=== PATIENT | male | born 1995 | race Two or more races ===

== ENCOUNTER → 2022-02-12 | Outpatient (REF) | payer BC ==
[2022-02-12 19:24] LABS: CHLORIDE LEVEL 104 MMOL/L (98-107); SODIUM LEVEL 142 MMOL/L (136-145)
[2022-02-12 19:26] LABS: ALBUMIN 4.3 G/DL (3.2-5.2); CARBON DIOXIDE LEVEL 27 MMOL/L (20-31)
[2022-02-12 19:30] LABS: BLOOD UREA NITROGEN 15 MG/DL (9-23)
[2022-02-12 19:31] LABS: ALKALINE PHOSPHATASE 64 U/L (46-116); CALCIUM LEVEL 9.6 MG/DL (8.5-10.1); GLUCOSE, FASTING 95 MG/DL (60-100)
[2022-02-12 19:32] LABS: ALT/SGPT 16 U/L (7.0-40); BILIRUBIN,TOTAL 0.8 MG/DL (0.3-1.2); TOTAL PROTEIN 7.3 G/DL (5.7-8.2)
[2022-02-12 19:33] LABS: AST/SGOT 19 U/L (<34); CREATININE FOR GFR 0.87 MG/DL (0.70-1.30); GLOMERULAR FILTRATION RATE > 60.0 (>60)
[2022-02-12 20:02] LABS: HIV 1&2 SCREEN CENTAUR NEGATIVE (NEGATIVE)
[2022-02-12 20:09] LABS: POTASSIUM SERUM 4.4 MMOL/L (3.5-5.1)
== END ==
LOC: M LAB REF 17:13
PROVIDERS: ATTEND Physician Assistant
DX: E80.6 Other disorders of bilirubin metabolism (principal); Z11.59 Encounter for screening for other viral diseases; Z11.4 Encounter for screening for human immunodeficiency virus [HIV]

== ENCOUNTER → 2022-06-26 | Outpatient (CLI) | payer OTHER | LOC: M RAD 12:57 | PROVIDERS: ATTEND Physician Assistant | DX: M25.562 Pain in left knee (principal) ==

== ENCOUNTER 2022-08-11 00:47 | Emergency (ER) | payer OTHER ==
[~2022-08-11] VITALS: Ht 172.7 cm; Wt 65.8 kg
[2022-08-11 00:48] VITALS: BP 135/88
[2022-08-11] MEDS ORDERED: ADDE10TA PO (00:53)
[2022-08-11] MEDS ORDERED: AUGMENTIN 875 MG TAB PO ONE (01:30)
[2022-08-11] MEDS ORDERED: AMOX875T2 PO (01:48)
[2022-08-11] MEDS ORDERED: FLON1SPR NARES (01:48)
== END 2022-08-11 01:51 | disposition home or self-care (01) ==
LOC: M ED 00:47
DX: J01.90 Acute sinusitis, unspecified (principal)

== ENCOUNTER 2022-11-27 23:08 | Emergency (ER) | payer MEDICAID, OTHER ==
[~2022-11-27] VITALS: Ht 172.7 cm; Wt 64.5 kg
[~2022-11-27 23:08] MED LIST: ADDE10TA PO; AMOX875T2 PO; FLON1SPR NARES
[2022-11-28] MEDS ORDERED: IBUPROFEN 600MG TAB PO ONE (01:50)
[2022-11-28] MEDS ORDERED: NEOSPORIN OINT 0.9 GM PKT TOP ONE (01:50)
[2022-11-28 02:20] VITALS: BP 130/80; TEMP 97.9; O2SAT 99
== END 2022-11-28 02:22 | disposition home or self-care (01) ==
LOC: M ED 23:08
DX: S60.511A Abrasion of right hand, initial encounter (principal); S63.501A Unspecified sprain of right wrist, initial encounter; Z79.2 Long term (current) use of antibiotics; Z79.899 Other long term (current) drug therapy

== ENCOUNTER 2023-10-16 06:30 | Emergency (ER) | payer OTHER ==
[~2023-10-16] VITALS: Ht 172.7 cm; Wt 63.6 kg
[2023-10-16] MEDS: NS 1,000 ML IV ONE ×2 (06:55→07:54)
[2023-10-16 07:19] LABS: BASO % 0.3 % (0.0-1.0); EOS # 0.1 10^3/uL (0.0-0.5); EOS % 1.3 % (0.0-3.0); HEMATOCRIT 40.9 % (42.0-52.0); HEMOGLOBIN 13.9 g/dl (13.5-17.5); LYMPH # 1.7 10^3/uL (1.5-5.0); MEAN CORPUSCULAR HEMOGLOBIN 27.5 pg (27.0-33.0); MONO # 0.4 10^3/uL (0.0-0.8); MONO % 6.3 % (2.0-8.0); NEUTROPHILS # 4.5 10^3/uL (1.5-8.5); PLATELET COUNT, AUTOMATED 201 10^3/uL (150-450); RED BLOOD COUNT 5.05 10^6/uL (4.30-6.10); WHITE BLOOD COUNT 6.8 10^3/uL (4.0-10.0)
[2023-10-16 07:27] LABS: LIPASE 28 U/L (12-53)
[2023-10-16 07:29] LABS: ALBUMIN 4.2 G/DL (3.2-5.2); ALKALINE PHOSPHATASE 68 U/L (46-116); ALT/SGPT 24 U/L (7.0-40); AST/SGOT 53 U/L (<34); BILIRUBIN,DIRECT 0.4 MG/DL (<0.4); BILIRUBIN,TOTAL 1.2 MG/DL (0.3-1.2); BLOOD UREA NITROGEN 18 MG/DL (9-23); CALCIUM LEVEL 8.4 MG/DL (8.5-10.1); CARBON DIOXIDE LEVEL 24 MMOL/L (20-31); CHLORIDE LEVEL 104 MMOL/L (98-107); CK-MB VALUE MASS 11.7 NG/ML (<3.6); CREATININE FOR GFR 0.99 MG/DL (0.70-1.30); GLOMERULAR FILTRATION RATE > 60.0 (>60); GLUCOSE, FASTING 107 MG/DL (60-100); POTASSIUM SERUM 3.2 MMOL/L (3.5-5.1); SODIUM LEVEL 137 MMOL/L (136-145); TOTAL PROTEIN 6.7 G/DL (5.7-8.2)
[2023-10-16 07:30] LABS: SALICYLATE LEVEL < 3.0 MG/DL (<30)
[2023-10-16 07:31] LABS: ETHYL ALCOHOL (ETHANOL) < 0.003 % (0.000-0.010); THYROID STIMULATING HORMONE 0.729 uIU/ML (0.55-4.78)
[2023-10-16 07:32] LABS: FREE T4 1.45 NG/DL (0.89-1.76)
[2023-10-16 07:34] LABS: CPK CREATINE PHOSPHOKINASE 1081 U/L (46-171); MB/CK RELATIVE INDEX 1.08 (< OR =4)
[2023-10-16] MEDS ORDERED: ISOVUE-370 76% 100ML VIAL As Ordered ONE (08:02)
[2023-10-16 08:22] LABS: CPK CREATINE PHOSPHOKINASE 961 U/L (46-171); MB/CK RELATIVE INDEX 1.14 (< OR =4)
[2023-10-16 10:00] VITALS: BP 109/62; TEMP 97.2; O2SAT 98
[2023-10-16 10:00] LABS: AMPHETAMINES LEVEL URINE NEGATIVE (NEGATIVE); BARBITURATES URINE NEGATIVE (NEGATIVE); BENZODIAZEPINES URINE NEGATIVE (NEGATIVE); CANNABINOIDS URINE POSITIVE (NEGATIVE); COCAINE METABOLITE URINE POSITIVE (NEGATIVE); METHADONE URINE NEGATIVE (NEGATIVE); OPIATES URINE NEGATIVE (NEGATIVE); PHENCYCLIDINE URINE NEGATIVE (NEGATIVE)
== END 2023-10-16 10:38 | disposition home or self-care (01) ==
LOC: M ED 06:30 → EDBD 06:30 → M ED 10:38
DX: F19.10 Other psychoactive substance abuse, uncomplicated (principal); R07.9 Chest pain, unspecified; F90.9 Attention-deficit hyperactivity disorder, unspecified type; F17.290 Nicotine dependence, other tobacco product, uncomplicated; Z79.899 Other long term (current) drug therapy
CPT/HCPCS: 71045; 71275; 80047; 80048; 80076; 80143; 80307; 82077; 82550; 82553; 83690; 84439; 84443; 84484; 85025; 93005; 93041; 94760; 96360; 96361; 99285; Q9967

== ENCOUNTER → 2024-02-09 | Outpatient (REF) | payer OTHER ==
[2024-02-09 19:12] LABS: Trichomonas vaginalis (AMP) NOT DETECTED (NEGATIVE)
[2024-02-09 19:36] LABS: GC DNA AMPLIFICATION NEGATIVE (NEGATIVE)
[2024-02-09 19:59] LABS: HEPATITIS C VIRUS ABY INDEX 0.19 INDEX (<0.8)
== END ==
LOC: M LAB REF 16:17
PROVIDERS: ATTEND Physician Assistant
DX: Z11.3 Encounter for screening for infections with a predominantly sexual mode of transmission (principal); Z79.899 Other long term (current) drug therapy; Z11.59 Encounter for screening for other viral diseases

== ENCOUNTER 2024-04-07 20:36 | Emergency (ER) | payer OTHER ==
[~2024-04-07] VITALS: Ht 172.7 cm; Wt 72.7 kg
[2024-04-07] MEDS ORDERED: AMPH1CAP14 PO (21:01)
[2024-04-07] MEDS: OLANZapine INTRAMUSCULAR 10MG VIAL IM ONE (21:24)
[2024-04-07] MEDS: LORazepam 2 MG/ML 1ML VIAL IM ONE (21:24)
[2024-04-07] MEDS ORDERED: MED REC CURRENTLY UNOBTAINABLE XX SCH (21:45)
[2024-04-07 22:28] LABS: HEMATOCRIT 41.9 % (42.0-52.0); HEMOGLOBIN 14.1 g/dl (13.5-17.5); MEAN CORPUSCULAR HEMOGLOBIN 27.9 pg (27.0-33.0); MEAN CORPUSCULAR HGB CONC 33.7 g/dl (32.0-36.5); MEAN CORPUSCULAR VOLUME 82.8 fl (80.0-96.0); PLATELET COUNT, AUTOMATED 221 10^3/uL (150-450); RED BLOOD COUNT 5.06 10^6/uL (4.30-6.10); WHITE BLOOD COUNT 9.5 10^3/uL (4.0-10.0)
[2024-04-07 22:44] LABS: ETHYL ALCOHOL (ETHANOL) < 0.003 % (0.000-0.010)
[2024-04-07 22:46] LABS: ALBUMIN 4.1 G/DL (3.2-5.2); ALKALINE PHOSPHATASE 73 U/L (40-129); ALT/SGPT 19 U/L (7.0-40); AST/SGOT 15 U/L (<34); BILIRUBIN,DIRECT 0.2 MG/DL (<0.4); BILIRUBIN,TOTAL 0.7 MG/DL (0.3-1.2); BLOOD UREA NITROGEN 21 MG/DL (9-23); CALCIUM LEVEL 9.5 MG/DL (8.5-10.1); CARBON DIOXIDE LEVEL 23 MMOL/L (20-31); CHLORIDE LEVEL 108 MMOL/L (98-107); CREATININE FOR GFR 1.15 MG/DL (0.70-1.30); GLOMERULAR FILTRATION RATE > 60.0 (>60); GLUCOSE, FASTING 121 MG/DL (60-100); POTASSIUM SERUM 3.9 MMOL/L (3.5-5.1); SALICYLATE LEVEL < 3.0 MG/DL (<30); SODIUM LEVEL 141 MMOL/L (136-145); TOTAL PROTEIN 7.1 G/DL (5.7-8.2)
[2024-04-07 22:47] LABS: THYROID STIMULATING HORMONE 1.235 uIU/ML (0.55-4.78)
[2024-04-08] MEDS ORDERED: HOME MED LIST COMPLETE! XX SCH (08:35)
[2024-04-08 11:40] VITALS: BP 140/90; TEMP 98; O2SAT 97
[2024-04-08 11:48] LABS: AMPHETAMINES LEVEL URINE NEGATIVE (NEGATIVE); BARBITURATES URINE NEGATIVE (NEGATIVE); BENZODIAZEPINES URINE NEGATIVE (NEGATIVE); CANNABINOIDS URINE NEGATIVE (NEGATIVE); COCAINE METABOLITE URINE NEGATIVE (NEGATIVE); METHADONE URINE NEGATIVE (NEGATIVE); OPIATES URINE NEGATIVE (NEGATIVE); PHENCYCLIDINE URINE NEGATIVE (NEGATIVE)
== END 2024-04-08 14:03 | disposition home or self-care (01) ==
LOC: M ED 20:36
DX: F23 Brief psychotic disorder (principal); F90.9 Attention-deficit hyperactivity disorder, unspecified type
CPT/HCPCS: 80048; 80076; 80143; 80307; 82077; 84443; 85027; 96372; 99285; J2060; J2359